=== PATIENT | male | born 1965 | race Caucasian/White ===

== ENCOUNTER 2022-12-23 14:30 | Outpatient (RCR) | payer OTHER, SELFPAY | END 2022-12-23 15:41 | disposition home or self-care (01) | LOC: HO.OT 14:30 | PROVIDERS: PCP Physician Assistant Medical; Visit Provider Physician Assistant Medical | DX: I69.354 Hemiplegia and hemiparesis following cerebral infarction affecting left non-dominant side (principal) | CPT/HCPCS: 97112; 97140; 97166 ==